=== PATIENT | female | born 1990 | race Caucasian/White ===

== ENCOUNTER → 2023-12-31 06:31 | Day surgery (SDC) | payer OTHER, SELFPAY | LOC: GI 06:31 | PROVIDERS: ATTENDING PHYSICIAN Internal Medicine | DX: D12.4 Benign neoplasm of descending colon (principal); K63.89 Other specified diseases of intestine; K62.89 Other specified diseases of anus and rectum; K64.9 Unspecified hemorrhoids; R19.7 Diarrhea, unspecified; R19.5 Other fecal abnormalities; K20.0 Eosinophilic esophagitis; K22.89 Other specified disease of esophagus; K44.9 Diaphragmatic hernia without obstruction or gangrene; K31.89 Other diseases of stomach and duodenum; R13.10 Dysphagia, unspecified | CPT/HCPCS: 45380; 43239; 88305; 88342 ==

== ENCOUNTER → 2024-03-03 06:34 | Day surgery (SDC) | payer OTHER, SELFPAY | LOC: GI 06:34 | PROVIDERS: ATTENDING PHYSICIAN Internal Medicine | DX: K20.0 Eosinophilic esophagitis (principal); K22.2 Esophageal obstruction; R13.14 Dysphagia, pharyngoesophageal phase | CPT/HCPCS: 43249; 43239; 88305 ==

== ENCOUNTER 2024-07-12 09:42 | Emergency (ER) | payer OTHER, SELFPAY ==
[2024-07-12 09:57] VITALS: BP 138/89
--- NOTE | 2024-07-12 10:23 | EDRN ---
DR. Correa in to see pt.
--- NOTE | 2024-07-12 10:25 | ED.GENMED ---
History of Present Illness
General
Chief Complaint: Allergic Reaction
Time Seen by Provider: 07/12/24 10:10
History of Present Illness
History of Present Illness:
Patient presents to the emergency department with multiple complaints. Notes that she woke up this morning with severe bilateral pelvic pain. Pain was radiating down into her anterior thighs. She was driving in the car on her way to the hospital
having coconut water when she started feeling like her lips were swelling and felt some itching in her throat. Symptoms are improving at this time. She feels that she is having some type of immune reaction to something. Denies any history of
anaphylaxis. Denies any allergies to coconut. Denies any new exposures that she is aware of. Patient denies any vaginal discharge or vaginal bleeding. Last menstrual period was last week of May
Past History
Past History
ED Past Medical History: Psychiatric and Other (Asthma, previous cocaine abuse, opiate and benzodiazepine abuse as well)
ED Past Surgical History: Appendectomy and (�2)
Social History
Tobacco: Former smoker
Alcohol: None
Drug: Former user, Cocaine, Narcotics and Other (Benzodiazepines)
Personal:
Living: with family
Employment: Not employed
Family History
Family History: Other (Multiple sclerosis, colon cancer, M�ni�re's, COPD, acromegaly)
Phy Exam
Physical Exam
Physical Exam:
GENERAL APPEARANCE: NAD, well developed/ well nourished
EYES lids/conjunctiva normal
EARS/NOSE/THROAT no angioedema, mucous membranes moist, uvula midline without oral pharyngeal erythema, exudate or swelling
HEAD/NECK normocephalic atraumatic, neck is supple.
RESPIRATORY respiratory effort normal, speaks in full sentences, no accessory muscle use. Lungs clear to auscultation without rhonchi, wheezes, rales
CARDIAC Regular rate and rhythm, no edema.
ABDOMINAL Soft, ND/NT. No pulsatile masses on exam, rebound tenderness, Villa sign or pain over Mcburney's point.
MUSCLES/EXTREMITIES No abnormal range of motion, no swelling.
SKIN Warm, pink and dry. No rashes
NEUROLOGICAL Speech is clear and appropriate. Normal level of consciousness. 5/5 strength in all extremities.
PSYCH Normal mood and affect. Judgement/competence is appropriate
Course
Orders/Labs/Results
Orders:
Orders
07/12/24 10:22
Dexamethasone Sod Phosphate [Decadron] 8 mg IV NOW STA
Diphenhydramine [Benadryl] 25 mg IV NOW STA
Pulse Ox/cont/shift [RESP] Stat
Quantity: 1
US Pelvis Transvaginal Only Urgent
Comment:
Reason For Exam: pelvic pain, rule out torsion
07/12/24 10:24
Test Result ONCE
07/12/24 10:29
Test Result ONCE
07/12/24 10:47
Complete Blood Count/With Diff Urgent
Comprehensive Metabolic Panel Urgent
HCG, Serum Qualitative Screen Urgent
Urinalysis Reflex To Culture Urgent
Date Specimen was Collected: 07/12/24
Time Specimen was Collected: 10:40
Abnormal Lab Results
07/12/24
10:47
WBC 4.6 L 10^3/uL
(4.8-10.8)
MCH 32.2 H pg
(27.0-31.0)
Monocytes % 12.1 H %
(1.7-9.3)
07/12/24 10:47
07/12/24 10:47
Vital Signs
Initial and Last Documented VS:
Initial Vital Signs
Temp Pulse Resp BP Pulse Ox
98.3 F 72 16 138/89 100
07/12/24 09:57 07/12/24 09:57 07/12/24 09:57 07/12/24 09:57 07/12/24 09:57
Last Documented Vital Signs
Temp Pulse Resp BP Pulse Ox
98.3 F 75 14 118/81 99
07/12/24 09:57 07/12/24 12:20 07/12/24 12:20 07/12/24 12:20 07/12/24 12:20
*Critical Care Note
Total Time (30-74mins, 75-104mins- exclusive of procedures): Not Applicable
ED Attending Note
ED Attending Note
ED Attending Note:
Patient symptoms have resolved at this time. Her workup is largely unremarkable. She no longer has itching or swelling. Pelvic pain has resolved. Ultrasound is reassuring. Unclear etiology, possibly allergic versus autoimmune process. She
reports that she will follow-up with her primary doctor this week for recheck. Return precautions given.
-
Portions of this chart may have been created with voice recognition software.� Occasional wrong word or��sound alike� substitutions may have occurred due to the inherent limitations of voice recognition software.
Discharge Plan
Departure
Patient Disposition: Home (Routine Discharge)
Date of Disposition: 07/12/24
Time of Disposition: 12:37
Patient with high blood pressure during this ER visit?: Yes
Discharge Problem:
Allergic reaction, Pelvic pain
Instructions: Pelvic Pain (DC), Allergic Reaction ED
Prescriptions:
No Action
dextroamphetamine-amphetamine [Adderall XR] 30 MG capsule,extended release 24hr
30 mg PO DAILY
Referrals:
Myron Oreilly MD [Family Provider] -
Interventions
Interventions:
*Risk Screen - Suicide Last Done: 07/12/24 10:52
*General Assessment Last Done: 07/12/24 10:52
*Neglect/Abuse Screening Last Done: 07/12/24 10:52
ED- Fall Risk Assessment Last Done: 07/12/24 10:52
*ED COVID-19 Vaccine History Last Done: 07/12/24 10:52
*Nursing Disposition Last Done: 07/12/24 12:59
ED- Cardiac Assessment Last Done: 07/12/24 10:55
ED- Pulmonary Assessment Last Done: 07/12/24 10:55
ED-Skin Assessment Last Done: 07/12/24 10:55
Discharge Date and Time
Discharge Date/Time: 07/12/24 13:00
Print Language: ARMENIAN
[2024-07-12] MEDS: DECADRON 8 MG IV (10:47)
[2024-07-12] MEDS: BENADRYL 25 MG IV (10:47)
[2024-07-12 10:52] VITALS: BMI 20.5
[2024-07-12 10:56] VITALS: BP 139/85
[2024-07-12 11:00] VITALS: BP 119/85
[2024-07-12 11:03] LABS: % Basophils 0.6 % (0-2); % Eosinophils 1.9 % (0-6); % Immature Granulocytes 0.2 % (0-0.5); % Lymphocytes 37.4 % (20.5-51.1); % Monocytes 12.1 % (1.7-9.3); % Neutrophils 47.8 % (42.2-75.2); Absolute Eosinophils 0.1 10^3/uL (0-0.7); Absolute Lymphocytes 1.7 10^3/uL (1.2-3.4); Absolute Monocytes 0.6 10^3/uL (0.1-0.6); Absolute Neutrophils 2.2 10^3/uL (1.4-6.5); Hemoglobin 14.3 g/dL (12.0-16.0); Mean Corp Hgb Conc. 34.9 g/dL (33.0-37.0); Mean Corpuscular Hgb 32.2 pg (27.0-31.0); Mean Corpuscular Volume 92.3 fL (81.0-99.0); Mean Platelet Volume 8.7 fL (7.4-10.4); Nucleated Red Blood Cells % 0 %; Platelet Count 326 10^3/uL (130-400); Red Blood Cell Count 4.44 10^6/uL (4.20-5.40); Red Cell Dist. Width 11.9 % (11.5-14.5); White Blood Cell Count 4.6 10^3/uL (4.8-10.8)
[2024-07-12 11:12] LABS: Urine Albumin Negative (Neg - Trace); Urine Bilirubin Negative (Negative); Urine Character Clear (Clear); Urine Color Yellow; Urine Glucose Negative (Negative); Urine Ketone Negative (Negative); Urine Leukocyte Negative (Negative); Urine Nitrite Negative (Negative); Urine Occult Blood Negative (Negative); Urine Specific Gravity 1.005 (<1.030); Urine Urobilinogen Negative (Neg - 1+)
[2024-07-12 11:14] LABS: HCG, Serum Qualitative Screen Negative
[2024-07-12 11:21] LABS: ALT (SGPT) 27 U/L (0-35); AST (SGOT) 30 U/L (14-36); Albumin 4.4 g/dl (3.5-5.0); Alkaline Phosphatase 75 U/L (38-126); Blood Urea Nitrogen 17 mg/dl (7-17); Calcium 9.6 mg/dl (8.4-10.2); Carbon Dioxide 25 mmol/L (22-30); Chloride 103 mmol/L (98-107); Estimated Creatinine Clearance 102 ml/min; Glucose 88 mg/dl (70-99); Sodium 138 mmol/L (135-145); Total Bilirubin 0.2 mg/dl (0.2-1.3); eGFR > 60.00
[2024-07-12 12:20] VITALS: BP 118/81
--- NOTE | 2024-07-12 12:58 | EDRN ---
Pelvic and leg pain now gone. Pt states only pain in neck w/ movement though sl less at 7/10 and 3/10 w/out movement.
== END 2024-07-12 13:00 | disposition home or self-care (01) ==
LOC: EMR 09:42
PROVIDERS: EMERGENCY PHYSICIAN Emergency Medicine; FAMILY PHYSICIAN Family Medicine
DX: T78.40XA Allergy, unspecified, initial encounter (principal); X58.XXXA Exposure to other specified factors, initial encounter; R10.2 Pelvic and perineal pain; Z87.891 Personal history of nicotine dependence; Z90.49 Acquired absence of other specified parts of digestive tract
CPT/HCPCS: 96374; 96375; 99284; 76830; 80053; 81003; 84703; 85025